=== PATIENT | male | born 1940 | race Caucasian/White ===

== ENCOUNTER 2021-01-05 20:03 | Observation (INO) | payer MEDICARE, OTHER ==
[~2021-01-05] VITALS: Ht 172.7 cm; Wt 97.0 kg
--- NOTE | 2021-01-05 20:05 | NUR ---
PT HAS AN OUTDATED MED LIST FROM 2019...UNSURE OF CURRENT MEDS.
--- NOTE | 2021-01-05 20:05 | NUR ---
AMBULATORY TO ROOM FROM WR. NAD. TRIAGED AT BEDSIDE. DENIES PAIN AT THIS TIME
[2021-01-05 20:41] LABS: HEMATOCRIT 42.3 % (39.0-50.0); IMMATURE GRANULOCYTES 0.2 % (0.0-5.0); MEAN CELL VOLUME 91.8 fL CALC (80.0-100.0); MEAN CORPUSCULAR HGB 30.4 pG CALC (26.0-32.0); MEAN CORPUSCULAR HGB CONC 33.1 g/dL CAL (32.0-36.0); NEUT# 3.45 thou/uL (1.82-7.42); RED BLOOD COUNT 4.61 mill/uL (4.70-6.10); RED CELL DISTRI WIDTH 13.6 % (11.5-15.5)
[2021-01-05 20:53] LABS: ALBUMIN 4.3 g/dL (3.2-5.0); ALKALINE PHOSPHATASE 95 u/l (38-126); ANION GAP 11 (6-22 (CALC)); BILIRUBIN, TOTAL 0.5 mg/dL (0.0-1.4); BUN 26 mg/dL (8-23); BUN/CREATININE RATIO 26 (12-20 (CALC)); CARBON DIOXIDE 30 mmol/l (22-30); CHLORIDE 101 mmol/l (95-108); GFR > 60 ML/MIN (>=60 (CALC)); GFR FOR AFR.AMER. > 60 ML/MIN (>=60 (CALC)); POTASSIUM 3.8 mmol/l (3.5-5.1); SGOT/AST 19 u/l (19-48); SODIUM 138 mmol/l (137-146); TOTAL PROTEIN 7.4 g/dL (6.3-8.2)
[2021-01-05 21:05] LABS: MYOGLOBIN 43 ng/mL (0 - 121)
[2021-01-05] MEDS ORDERED: XARELTO10 MG PO (21:20)
[2021-01-05] MEDS ORDERED: ASPIRIN 81 LOW81 MG (21:20)
--- NOTE | 2021-01-05 22:00 | NUR ---
REPORT TO LINETTE NICKERSON
--- NOTE | 2021-01-05 23:59 | NUR ---
REPORT TO RICKY, NURSE/MED-SURG
--- NOTE | 2021-01-06 | NUR ---
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
[2021-01-06 00:10] VITALS: BP 166/87
--- NOTE | 2021-01-06 01:30 | NUR ---
PT WAS ADMITTED TO ROOM 280 VIA WHEELCHAIR TRANSPORT. PT IS ALERT AND ORIENTED AND ABLE TO MAKE NEEDS KNOWN. DENIES CHEST PAIN. COMPLAINED OF BACK PAIN AT 7 ON SCALE OF 1-10 WITH 10 GREATEST. LUNG SOUNDS ARE CLEAR AND EQUAL. HEART RHYTHM REGULAR. ABDOMEN IS DISTENDED AND FIRM AND PT STATES LAST BM WAS 01/03/21. CONTINENT OF B/B AND ABLE TO AMBULATE TO TOILET WITH STANDBY ASSIST. MEDICATED FOR BACK PAIN AND WAS EFFECTIVE. CALL LIGHT IS WITHIN REACH. WILL CONTINUE TO OBSERVE
[2021-01-06 04:00] VITALS: BP 133/77
--- NOTE | 2021-01-06 04:49 | NUR ---
PT IN BED WITH EYES CLOSED. NO S/S OF DISTRESS NOTED. MEDICATED FOR PAIN AND EFFECTIVE. RESPIRATION EVEN AND NON LABORED. CALL LIGHT IS WITHIN REACH. WILL CONTINUE TO OBSERVE
[2021-01-06 08:42] VITALS: BP 146/80
--- NOTE | 2021-01-06 08:46 | NUR ---
PATIENT SITTING IN THE SIDE OF THE BED. ASSESSMENT DONE. TELE IN PLACE. PATIENT IS A&O X3. RESPS EVEN AND UNLABORED. PATIENT DENIES CHEST PAIN. PATIENT STATED PAIN IN BACK 04/27. MEDICATED PATIENT WITH OXYCODONE. PRUINE JUICE PROIVED. CALL LIGHT IN REACH.
[2021-01-06 10:58] VITALS: BP 146/84
--- NOTE | 2021-01-06 12:05 | NUR ---
Discharge instructions given. Patient verbalizes understanding of same. Discharged in stable condition via Ambulatory to Home with staff. All belongings sent with pt.
== END 2021-01-06 12:06 | disposition home or self-care (01) ==
LOC: ED 20:03 → ED-I 20:37 → MS2 22:25 → ED 22:25 → MS2 01-06 12:06
PROVIDERS: Emergency Medicine; ADMIT Internal Medicine; ATTEND Internal Medicine
DX: R07.9 Chest pain, unspecified (principal); I10 Essential (primary) hypertension; I25.10 Atherosclerotic heart disease of native coronary artery without angina pectoris; E03.9 Hypothyroidism, unspecified; Z95.5 Presence of coronary angioplasty implant and graft; Z86.718 Personal history of other venous thrombosis and embolism; Z79.01 Long term (current) use of anticoagulants; Z20.822 Contact with and (suspected) exposure to COVID-19